=== PATIENT | male | born 1940 | race Caucasian/White ===

== ENCOUNTER 2024-07-28 12:06 | Emergency (ER) | payer MEDICARE, OTHER, SELFPAY ==
[2024-07-28 12:10] VITALS: BP 130/84
[2024-07-28 12:31] LABS: % Basophils 0.7 % (0-2); % Eosinophils 2.2 % (0-6); % Immature Granulocytes 0.3 % (0-0.5); % Lymphocytes 28.2 % (20.5-51.1); % Neutrophils 61.6 % (42.2-75.2); Absolute Basophils 0.1 10^3/uL (0-0.2); Absolute Eosinophils 0.2 10^3/uL (0-0.7); Absolute Lymphocytes 2.6 10^3/uL (1.2-3.4); Absolute Monocytes 0.6 10^3/uL (0.1-0.6); Absolute Neutrophils 5.7 10^3/uL (1.4-6.5); Hematocrit 48.3 % (39.0-52.0); Hemoglobin 16.1 g/dL (13.0-18.0); Mean Corp Hgb Conc. 33.3 g/dL (33.0-37.0); Mean Corpuscular Hgb 30.7 pg (27.0-31.0); Mean Corpuscular Volume 92.2 fL (80.0-94.0); Mean Platelet Volume 8.5 fL (7.4-10.4); Nucleated Red Blood Cells % 0 % (-); Platelet Count 293 10^3/uL (130-400); Red Blood Cell Count 5.24 10^6/uL (4.70-6.10); Red Cell Dist. Width 13.7 % (11.5-14.5); White Blood Cell Count 9.2 10^3/uL (4.8-10.8)
[2024-07-28 12:43] LABS: COVID-19 Antigen Negative (Negative)
[2024-07-28 12:46] LABS: ALT (SGPT) 11 U/L (0-50); AST (SGOT) 30 U/L (17-59); Albumin 4.6 g/dl (3.5-5.0); Alkaline Phosphatase 82 U/L (38-126); Blood Urea Nitrogen 17 mg/dl (9-20); Calcium 9.7 mg/dl (8.4-10.2); Carbon Dioxide 31 mmol/L (22-30); Chloride 102 mmol/L (98-107); Glucose 88 mg/dl (70-99); Potassium 4.5 mmol/L (3.5-5.1); Sodium 142 mmol/L (135-145); Total Bilirubin 0.9 mg/dl (0.2-1.3); Total Protein 6.8 g/dl (6.3-8.2); eGFR > 60.00
[2024-07-28 12:49] LABS: Urine Albumin Negative (Neg - Trace); Urine Bilirubin Negative (Negative); Urine Character Clear (Clear); Urine Color Yellow; Urine Glucose Negative (Negative); Urine Ketone 1+ (Negative); Urine Leukocyte Negative (Negative); Urine Nitrite Negative (Negative); Urine Occult Blood Negative (Negative); Urine Urobilinogen Negative (Neg - 1+)
[2024-07-28 15:37] VITALS: BP 121/61
--- NOTE | 2024-07-28 19:33 | ED.GENMED ---
History of Present Illness
General
Chief Complaint: Male Genito-Urinary Symptoms
Source: patient and spouse
Exam Limitations: none
Time Seen by Provider: 07/28/24 15:50
Nursing documentation reviewed up to this point in time: agreed with
History of Present Illness
History of Present Illness:
83-year-old male with history as noted presents to the ER with his for evaluation of restlessness. His reports that over the past 2 days she noticed that he was a bit more restless. Spoke with PCP who recommended coming to the ER to be
evaluated, concerned that potentially he could have a UTI. Patient says that he feels generally well. He has no acute complaints. Denies headache, chest pain, back pain, abdominal pain. His says that she has not noticed any vomiting or any
other issues aside from some mild agitation. She says that he does have some mild cognitive impairment and thinks it could be related but brought him in an abundance of caution.
Past History
Past History
ED Past Medical History: Arrthythmia, COPD, HTN, Other (renal calc) and Other (Prostatitis, kidney stones, Parkinsons)
ED Past Surgical History: Tonsilectomy and Urological
Social History
Tobacco: Former smoker
Alcohol: None
Personal:
Living: with family
Employment: Retired
Review of Systems
Review of Systems
All Other Systems: ROS reviewed and negative except as documented in HPI and ROS
Constitutional: Denies fever or chills
Respiratory: Denies cough or trouble breathing
Cardiac: Denies chest pain or palpitations
ABD/GI: Denies abdominal pain, nausea, vomiting or diarrhea
: Denies dysuria or flank pain
Musculoskeletal: Denies neck pain or back pain
Neurological: Denies dizzy or headache
Phy Exam
Physical Exam
Physical Exam:
General: Sitting in bed resting comfortably, nontoxic
Head: Normocephalic, atraumatic
Eyes: Conjunctiva normal, EOMI, pupils equal round and reactive to light bilaterally
Throat: Airway intact, handling secretions
Neck: Trachea midline, supple without meningismus
Lungs: Clear to auscultation bilaterally, no wheezing, rales, rhonchi
Heart: Regular rate and rhythm, no murmurs, gallops, or rubs
Abd: Soft, non distended, nontender
Skin: Chronic venous stasis changes in the legs bilaterally
Extremities: Bilateral lower extremity edema, distal extremities warm well-perfused
Scores
Heart Failure Risk
Heart Failure Risk Score: Not Applicable
Heart Score for Chest Pain Patients
STEMI patient?: Not applicable
Withdrawal Assessment of Alcohol
Withdrawal Assessment Completed?: Not applicable
Course
Orders/Labs/Results
Orders:
Orders
07/28/24 12:12
Electrocardiogram (*1) Urgent
Reason for Study: Other
Other Reason for Exam: Possible Sepsis
07/28/24 12:13
EKG- Treatment ONCE
CR Chest - 2 Views Urgent
Comment:
Reason For Exam: suspected infection
07/28/24 12:16
COVID-19 Antigen Urgent
Source: Nasal Swab
Complete Blood Count/With Diff Urgent
Comprehensive Metabolic Panel Urgent
Urinalysis Reflex To Culture Urgent
Date Specimen was Collected: 07/28/24
Time Specimen was Collected: 12:13
Influenza A+B Rapid Molecular Urgent
MICHAEL Source: Nasal Swab
Specimen Description:
Abnormal Lab Results
07/28/24
12:16
Carbon Dioxide 31 H mmol/L
(22-30)
Urine Ketones 1+ A
(Negative)
07/28/24 12:16
07/28/24 12:16
Vital Signs
Initial and Last Documented VS:
Initial Vital Signs
Temp Pulse Resp BP Pulse Ox
36.4 C 57 16 130/84 98
07/28/24 12:10 07/28/24 12:10 07/28/24 12:10 07/28/24 12:10 07/28/24 12:10
Last Documented Vital Signs
Temp Pulse Resp BP Pulse Ox
36.4 C 54 18 121/61 95
07/28/24 15:37 07/28/24 15:37 07/28/24 15:37 07/28/24 15:37 07/28/24 15:37
MDM/Problems Addressed
Differential Diagnosis Includes:
Delirium, polypharmacy, infection, electrolyte derangement
MDM/Problems Addressed:
83-year-old male presents for evaluation of some increased agitation over the past 2 days. No other symptoms noted. Vitals are all normal. Physical exam as above. Labs sent off including a CBC and a CMP which showed no clinically significant
abnormalities. Urinalysis shows no infection. COVID and flu negative. Chest x-ray no infection. EKG shows sinus rhythm. Low suspicion for emergent pathology. Suspect this may be some mild delirium. Stable for discharge. I did call and
discussed case with patient's primary care physician who will follow-up with him in the office. All questions answered.
*Radiology
Radiology exam reviewed: radiology read reviewed
*Pulse Oximetry
Patient hypoxic: no
*EKG
Interpreted by ED Provider?: Yes
Heart Rate: 55
Rate: bradycardiac
Rhythm: sinus
[place]: left axis deviation
Interval: normal interval
QRS Pattern: normal QRS
Ischemia: non-specific ST changes
*Critical Care Note
Total Time (30-74mins, 75-104mins- exclusive of procedures): Not Applicable
Data Reviewed
Source: patient and spouse
Patient Management
Social determinants of health affecting care: Strong social support
Discussion with other providers: PCP (Discussed with primary care physician)
ED Attending Note
-
Portions of this chart may have been created with voice recognition software.� Occasional wrong word or��sound alike� substitutions may have occurred due to the inherent limitations of voice recognition software.
Discharge Plan
Departure
Patient Disposition: Home (Routine Discharge)
Date of Disposition: 07/28/24
Time of Disposition: 16:32
Patient with high blood pressure during this ER visit?: No
Discharge Problem:
Delirium
Instructions: Delirium (confusion)
Prescriptions:
No Action
aspirin 81 MG tablet,delayed release (DR/EC)
81 mg PO DAILY
cholecalciferol (vitamin D3) 2,000 UNIT tablet
2,000 unit PO DAILY
atorvastatin 10 MG tablet
10 mg PO DAILY
pramipexole 0.125 MG tablet
0.125 mg PO BID
Eliquis 5 MG tablet
5 mg PO BID 30 Days Qty: 60 3RF
furosemide [Lasix] 20 mg Tablet
20 mg PO DAILY
metoprolol succinate 25 mg tablet extended release 24 hr
25 mg PO DAILY
carbidopa-levodopa 25-100 mg tablet
2 tab PO TID
fluticasone propionate [Flovent HFA] 44 mcg/actuation Hfa Aerosol Inhaler
2 puff inhalation R BID Qty: 10.6 2RF
oseltamivir 75 mg Capsule
75 mg PO BID Qty: 8 0RF
Referrals:
Demond Ott DO [Family Provider] - Follow up in 2-3 days
Activity Restrictions/Additional Instructions:
Thank you for visiting the Emergency Department at [facility].
1. Please schedule a follow up appointment as directed. Call first thing tomorrow morning to make an appointment.
2. If indicated, please take your medications as instructed and indicated on discharge paperwork.
3. If any of your symptoms do not improve, or persist, or become more severe within 6-12 hours, please return to the emergency department for further care.
4. Please return to the emergency department if you develop a headache, neck pain/stiffness, fever greater than 100.4F, chest pain, shortness of breath, persistent nausea, vomiting, slurred speech, difficulty walking, numbness/tingling, weakness,
signs of infection or any other symptoms that are worrisome to you.
Please call [phone] if you have any questions.
Interventions
Interventions:
*Risk Screen - Suicide Last Done: 07/28/24 12:10
*General Assessment Last Done: 07/28/24 16:00
*Neglect/Abuse Screening Last Done: 07/28/24 12:10
*ED- Fall Risk Assessment Last Done: 07/28/24 16:00
ED-Male Genitourinary Assessment Last Done: 07/28/24 16:00
Discharge Date and Time
Print Language: BELARUSIAN
== END 2024-07-28 16:35 | disposition home or self-care (01) ==
LOC: EMR 12:06
PROVIDERS: Emergency Medicine; EMERGENCY PHYSICIAN Emergency Medicine; FAMILY PHYSICIAN Family Medicine; OTHER PHYSICIAN Specialist
DX: R41.0 Disorientation, unspecified (principal); J44.9 Chronic obstructive pulmonary disease, unspecified; I10 Essential (primary) hypertension; Z87.891 Personal history of nicotine dependence; G20.A1 Parkinson's disease without dyskinesia, without mention of fluctuations; G31.84 Mild cognitive impairment of uncertain or unknown etiology; Z11.52 Encounter for screening for COVID-19
CPT/HCPCS: 99285; 71046; 80053; 81003; 85025; 87502; 87811; 93005

== ENCOUNTER → 2024-10-10 17:24 | Outpatient (REF) | payer MEDICARE, OTHER, SELFPAY | LOC: RAD 17:24 | PROVIDERS: ATTENDING PHYSICIAN Family Medicine | DX: R05.1 Acute cough (principal); J22 Unspecified acute lower respiratory infection | CPT/HCPCS: 71046 ==

== ENCOUNTER 2024-12-05 18:05 | Inpatient (IN) | payer MEDICARE, OTHER, SELFPAY ==
[2024-12-05] VITALS (8 sets, daily range): BP systolic 116–153; BP diastolic 59–94; BMI 32.7
[2024-12-05 12:36] LABS: Hematocrit 49.8 % (39.0-52.0); Hemoglobin 16.3 g/dL (13.0-18.0); Mean Corp Hgb Conc. 32.7 g/dL (33.0-37.0); Mean Corpuscular Volume 92.9 fL (80.0-94.0); Nucleated Red Blood Cells % 0 % (-); Platelet Count 251 10^3/uL (130-400); Red Cell Dist. Width 14.1 % (11.5-14.5)
[2024-12-05 12:54] LABS: ALT (SGPT) 10 U/L (0-50); AST (SGOT) 24 U/L (17-59); Albumin 4.8 g/dl (3.5-5.0); Alkaline Phosphatase 70 U/L (38-126); Blood Urea Nitrogen 19 mg/dl (9-20); Calcium 9.8 mg/dl (8.4-10.2); Carbon Dioxide 32 mmol/L (22-30); Chloride 102 mmol/L (98-107); Glucose 99 mg/dl (70-99); Potassium 4.8 mmol/L (3.5-5.1); Sodium 140 mmol/L (135-145); Total Protein 7.3 g/dl (6.3-8.2); eGFR > 60.00
[2024-12-05 13:06] LABS: Troponin I < 0.012 ng/ml
--- NOTE | 2024-12-05 13:44 | ED.GENMED ---
History of Present Illness
General
Chief Complaint: Cough
Source: patient
Exam Limitations: none
Time Seen by Provider: 12/05/24 13:20
History of Present Illness
History of Present Illness:
84-year-old male with history of A-fib on Eliquis COPD presents complaining of 2 to 3 months worth of progressive chest congestion and cough with increased leg swelling and shortness of breath. He has been on Levaquin and steroids and took a break
and then was on doxycycline and steroids and most recently finishing 2 weeks ago he is on a Zithromax and a course of steroid. While on the steroid and antibiotic he feels slightly better but the symptoms returned. notes his recent weight
gain. He feels as though the congestion is worse when he lays flat. No fevers. No vomiting. He has a history of dementia and Parkinson's. No other complaints
Past History
Past History
ED Past Medical History: Arrthythmia, COPD, HTN, Other (renal calc) and Other (Prostatitis, kidney stones, Parkinsons)
ED Past Surgical History: Tonsilectomy and Urological
Social History
Tobacco: Former smoker
Alcohol: None
Personal:
Living: with family
Employment: Retired
Phy Exam
Physical Exam
Physical Exam:
General: Well-appearing male no acute respiratory distress
HEENT: Normocephalic atraumatic
Heart: Regular rate and rhythm
Lungs: Diffusely coarse with wheezing and rhonchi
Abdomen is soft nontender
Extremities: Pitting edema bilateral lower extremity
Course
Orders/Labs/Results
Orders:
Orders
12/05/24 11:54
Electrocardiogram (*1) Urgent
Reason for Study: Shortness of Breath
EKG- Treatment ONCE
12/05/24 12:12
CMP [Comprehensive Metabolic Panel] Urgent
Complete Blood Count/With Diff Urgent
NT-proBNP Urgent
Troponin I Urgent
12/05/24 13:36
CT Chest W/o Iv Contrast Urgent
Comment:
Reason For Exam: cough, congestion, sob
12/05/24 17:00
Dexamethasone Sod Phosphate [Decadron] 10 mg IV NOW STA
Ipratropium/Albuterol Sulfate [Duoneb] 3 ml INH R NOW STA
Abnormal Lab Results
12/05/24
12:12
MCHC 32.7 L g/dL
(33.0-37.0)
Eosinophils % 6.7 H %
(0-6)
Carbon Dioxide 32 H mmol/L
(22-30)
12/05/24 12:12
12/05/24 12:12
Vital Signs
Initial and Last Documented VS:
Initial Vital Signs
Temp Pulse Resp BP Pulse Ox
98.1 F 64 18 140/76 96
12/05/24 11:49 12/05/24 11:49 12/05/24 11:49 12/05/24 11:49 12/05/24 11:49
Last Documented Vital Signs
Temp Pulse Resp BP Pulse Ox
98.1 F 51 18 128/72 98
12/05/24 11:49 12/05/24 14:30 12/05/24 14:30 12/05/24 14:00 12/05/24 14:30
MDM/Problems Addressed
Differential Diagnosis Includes:
Chest congestion cough shortness of breath consider pneumonia versus bronchitis versus CHF
Patient does appear volume overloaded however BNP is normal. He was due for an outpatient CT of his chest as he had a x-ray of his chest in the recent past which was not helpful per the . CT of the chest was ordered.
*Pulse Oximetry
SaO2: 96
Oxygen Mode of Delivery: Room air
Patient hypoxic: no
*Critical Care Note
Total Time (30-74mins, 75-104mins- exclusive of procedures): Not Applicable
Update Note
Update Note:
CT negative. Patient reexamined does seem tachypneic at rest sometimes he drops to 86% on room air. Will start nasal cannula oxygen and treat for bronchitis flare with nebulizer and steroid. Patient has been failing even for this.
ED Attending Note
-
Portions of this chart may have been created with voice recognition software.� Occasional wrong word or��sound alike� substitutions may have occurred due to the inherent limitations of voice recognition software.
Discharge Plan
Departure
Patient Disposition: Admit
Date of Disposition: 12/05/24
Time of Disposition: 17:01
Presentation/result/management discussed w/ accepting MD/DO: Hospitalist
Discharge Problem:
Acute bronchitis
Prescriptions:
No Action
aspirin 81 MG tablet,delayed release (DR/EC)
81 mg PO DAILY
cholecalciferol (vitamin D3) 2,000 UNIT tablet
2,000 unit PO DAILY
atorvastatin 10 MG tablet
10 mg PO DAILY
pramipexole 0.125 MG tablet
0.125 mg PO BID
Eliquis 5 MG tablet
5 mg PO BID 30 Days Qty: 60 3RF
furosemide [Lasix] 20 mg Tablet
20 mg PO DAILY
metoprolol succinate 25 mg tablet extended release 24 hr
25 mg PO DAILY
carbidopa-levodopa 25-100 mg tablet
2 tab PO TID
fluticasone propionate [Flovent HFA] 44 mcg/actuation Hfa Aerosol Inhaler
2 puff inhalation R BID Qty: 10.6 2RF
oseltamivir 75 mg Capsule
75 mg PO BID Qty: 8 0RF
Referrals:
Demond Ott DO [Family Provider, Family Practice]
Interventions
Interventions:
*Risk Screen - Suicide Last Done: 12/05/24 11:49
*Neglect/Abuse Screening Last Done: 12/05/24 11:49
Discharge Date and Time
Print Language: MOLDOVAN
--- NOTE | 2024-12-05 17:06 | HPS.HSE ---
Addendum entered and electronically signed by Buddy Inman MD 12/05/24 18:41:
This is an addendum to H&P written by Corie Gutierrez on 12/05/2024. �Patient seen and examined independently with PA.
84-year-old male past medical history of atrial fibrillation on Eliquis, hypertension, COPD, Parkinson disease, anxiety/depression, history of left hemithyroidectomy, presented with cough and shortness of breath for past few months. �Treated with 3
courses of antibiotics and steroids with improvement and rebound. �No fever.
Increased lower extremity edema, 9 pound weight gain.
Vital signs normal. �Labs unremarkable. �Cardiac BNP 40. �Bilateral wheezing on examination
Chest x-ray shows no acute process. �CT chest shows minor bibasilar subsegmental atelectasis, no focal parenchymal consolidation.
Patient with likely acute COPD exacerbation with fluid retention secondary to frequent steroids. �Imaging and cardiac BNP not supportive of CHF exacerbation. �DuoNebs, dexamethasone. �Single dose of IV Lasix. �Check echocardiogram.
Original Note:
Family Physician
-
Family Physician: Demond Ott
Chief Complaint
-
Cough
History of Present Illness
Patient is an 84 y/o male past medical history of A-Fib, Hypertension, Hyperlipidemia, COPD and Parkinson' Disease who presents with cough and shortness of breath. Patient reports he has completed several coarse of steroids and antibiotics over the
past few months. He notes after each treatment he would get a little better but symptoms would quickly recur. He reports cough is only occasionally productive of clear mucus. He reports increased lower extremity edema and notes he has gained about
9lbs in the past 2 week despite having an poor appetite. He does have a nebulizer at home that he has been using about twice a day. He denies fevers, sweats or chills.
Medical History
Past Medical History
Past Medical History: Reports Other
Additional Past Medical History:
Paroxysmal Atrial Fibrillation
Essential Hypertension
Hyperlipidemia
COPD
Parkinson's Disease
Past Surgical History: Reports Other
Additional Past Surgical History:
Tonsillectomy
Lithotripsy
Left Hemithyroidectomy
Social History
Tobacco: Former Smoker (~40 pack year history - Quit about 40 years agos)
Alcohol: None
Family History
Family History: Not pertinent
Allergies / Home Medications
Allergies reflects when Allergies were last updated in [employer].
Home Medications with original date entered in [employer]
Allergy/Medication List:
Allergies
Allergy/AdvReac Type Severity Reaction Status Date / Time
No Known Allergies Allergy Verified 07/28/24 12:10
Home Medications
cholecalciferol (vitamin D3) 50 mcg (2,000 unit) tablet 2,000 unit PO DAILY Supplement 12/11/14
atorvastatin 10 mg tablet 10 mg PO DAILY High cholesterol 07/30/16
pramipexole 0.125 mg tablet 0.125 mg PO BID parkinson disease 02/25/21
apixaban 5 mg tablet (Eliquis) 5 mg PO BID 30 days #60 tabs 03/01/21
furosemide 20 mg tablet (Lasix) 20 mg PO DAILY Fluid retention/Swelling 04/12/22
carbidopa 25 mg-levodopa 100 mg tablet 2 tab PO QID parkinson disease 04/13/22
metoprolol succinate 25 mg tablet,extended release 24 hr 25 mg PO DAILY Blood pressure 04/13/22
ipratropium 0.5 mg-albuterol 3 mg (2.5 mg base)/3 mL nebulization soln 3 ml inhalation R QIDPRN PRN sob 12/05/24
mirtazapine 7.5 mg tablet 7.5 mg PO HS 12/05/24
therapeutic multivitamin 1 tab PO DAILY 12/05/24
zinc sulfate 50 mg zinc (220 mg) tablet 50 mg PO DAILY 12/05/24
Review of Systems
-
A 12 point ROS was completed and negative except as noted: Yes
Constitutional: Denies Fever
Respiratory: Reports See HPI
Cardiac: Denies Chest Pain or Palpitations
Abdomen/GI: Denies Abdominal Pain, Nausea, Vomiting or Diarrhea
Physical Exam
Vital Signs
Vital Signs
Temp Pulse Resp BP Pulse Ox
98.1 F 51 18 128/72 98
12/05/24 11:49 12/05/24 14:30 12/05/24 14:30 12/05/24 14:00 12/05/24 14:30
Physical Exam
General: Comfortable, Conversant and Obese
HEENT: Anicteric, Moist mucous membranes and Oxygen (Nasal Cannula)
Respiratory: Wheezes (Diffuse) and Non Labored Respirations
Cardiac: S1/S2 and Regular Rhythm
GI: Soft and Non Tender
Rectal: Deferred by Provider
Musculoskeletal: No Clubbing, No Cyanosis and Other (+2 pitting edema )
Skin: Warm, Dry and Other (Mild erythema bilateral lower extremities, right greater than left)
Neuro: Awake, Alert, Oriented and Tremors
Psych: Calm
Laboratory Results
-
12/05/24 12:12
12/05/24 12:12
Laboratory Results
Total Bilirubin 1.1 mg/dl (0.2-1.3) 12/05/24 12:12
AST 24 U/L (17-59) 12/05/24 12:12
ALT 10 U/L (0-50) 12/05/24 12:12
Alkaline Phosphatase 70 U/L (38-126) 12/05/24 12:12
Troponin I < 0.012 ng/ml 12/05/24 12:[address]:
Some minor bibasilar subsegmental atelectasis.
No focal parenchymal consolidation, pneumothorax or pleural effusion.
Data Reviewed
-
CT Scan: Report Reviewed by me
Lab Data: Labs Reviewed by me
Impression/Plan
-
Acute COPD Exacerbation
-Continue Decadron 4mg q12H
-Continue DuoNeb QID and PRN
-Monitor pulse ox
Fluid Retention due to recent/frequent steroids
-Give Lasix 40mg IV Now
-Check Peripheral Vascular US, though low suspicion for DVT as patient is on Eliquis
-Check Echocardiogram as prior with evidence of mild valvular disease
Paroxysmal Atrial Fibrillation
-Continue Eliquis
-Continue metoprolol with hold parameters
Essential Hypertension
-Continue metoprolol with hold parameters
Hyperlipidemia
-Continue atorvastatin
Parkinson's Disease
-Continue Sinemet and Pramipexole
DVT proph: Eliquis
Code Status: Full Code
[2024-12-05] MEDS: DUONEB 3 ML INH ×2 (17:25→20:28)
[2024-12-05] MEDS: DECADRON 10 MG IV (17:27)
--- NOTE | 2024-12-05 18:01 | CM ---
CM reviewed chart and met with pt's bedside in ED. Lives with in 2 story home, no KATHIA. Has hospital bed in on first floor, has half BA first floor, full BA second floor.
Needs assistance with ADLs and personal care, has private pay aides MWF from 9-.
Ambulates with rolling walker, also has nebulizer, toilet rails and raised toilet seat in upstairs BA.
Hx VN/PT/OT after admission at [facility] last year, no hx SNF
PCP: Demond Ott
Pharmacy: [facility]
CM will continue to follow for all discharge planning needs.
[2024-12-05] MEDS: LASIX 40 MG IV (18:43)
--- NOTE | 2024-12-05 21:00 | PTCARENOTE ---
Pt arrived to floor via stretcher from the ED. Pt OOBx2 with walker to stand and pivot to bed. Pt very unsteady on feet, stiff rigid body. Parkinsons shuffle. Pt AAOx2- Confused and needs things explained to him. Bed alarm in place. Daughter at
bedside to assist with admit. Pt normally at home independent with and home visiting nurse. Upon arrival pt assisted to stand to urinate, pt reports burning with urination and noted to be bleeding. Pt with urgency and frequency. Bladder scanned
performed, 440ml scanned. Pam GOODRICH notified, order obtained. pt straight cathed for 600ml blood tinged urine, Specimen sent to lab as ordered. pt too weak to walk to bathroom, pt given bed collins, unable to have BM at this time. Pt HERZOG, ex wheezes,
course lungs, harsh dry non productive cough. POX 94% on 2 LO2 NC. HR in the 70's in NSR on the monitor. Per daughter, pt gets confused at night and tries to get out and gets agitated at times. Bed alarm on bed to ensure safety. Call kinsey in reach.
Will continue to monitor closely.
[2024-12-05 21:24] LABS: Urine Character Clear (Clear)
[2024-12-05] MEDS: SINEMET 25-100 2 TABLET PO (21:26)
[2024-12-05] MEDS: ELIQUIS 5 MG PO (21:26)
[2024-12-05] MEDS: REMERON 7.5 MG PO (21:26)
[2024-12-05] MEDS: MIRAPEX 0.125 MG PO (21:28)
[2024-12-05 21:31] LABS: Urine Squamous Cell 0-2 /LPF (Few)
[2024-12-05 21:32] LABS: Urine Red Blood Cell 30-40 /HPF (0-2); Urine White Cell 0-2 /HPF (0-5)
[2024-12-06 03:28] VITALS: BP 134/72
[2024-12-06] MEDS: DECADRON 4 MG IV ×2 (05:08→18:05)
[2024-12-06 05:51] VITALS: BMI 32.9
[2024-12-06] MEDS: DUONEB 3 ML INH ×4 (07:19→19:16)
[2024-12-06 07:30] VITALS: BP 139/76
[2024-12-06 08:21] LABS: Hematocrit 49.2 % (39.0-52.0); Hemoglobin 16.6 g/dL (13.0-18.0); Mean Corp Hgb Conc. 33.7 g/dL (33.0-37.0); Mean Corpuscular Volume 91.6 fL (80.0-94.0); Platelet Count 282 10^3/uL (130-400); Red Cell Dist. Width 13.5 % (11.5-14.5)
[2024-12-06] MEDS: SINEMET 25-100 2 TABLET PO ×4 (08:48→20:03)
[2024-12-06] MEDS: LIPITOR 10 MG PO (08:48)
[2024-12-06] MEDS: ELIQUIS 5 MG PO ×2 (08:48→20:02)
[2024-12-06] MEDS: TOPROL XL 25 MG PO (08:49)
[2024-12-06] MEDS: MIRAPEX 0.125 MG PO ×2 (09:07→20:02)
[2024-12-06 09:13] LABS: Blood Urea Nitrogen 18 mg/dl (9-20); Calcium 9.6 mg/dl (8.4-10.2); Carbon Dioxide 25 mmol/L (22-30); Chloride 104 mmol/L (98-107); Estimated Creatinine Clearance 107 ml/min; Glucose 145 mg/dl (70-99); Magnesium 2.1 mg/dl (1.6-2.3); Potassium 4.5 mmol/L (3.5-5.1); Sodium 140 mmol/L (135-145); eGFR > 60.00
[2024-12-06] MEDS: DUONEB INH (11:27)
[2024-12-06 11:45] VITALS: BP 121/76
[2024-12-06 15:05] VITALS: BP 108/58
--- NOTE | 2024-12-06 15:05 | W.PN.HOSP.TC ---
Today's Communication/Plan
-
Consult pulmonary
Assessment / Plan
Assessment / Plan
Acute COPD Exacerbation
Patient denies history of COPD but says he has chronic bronchitis.
Recurrent flares needing 3 courses of steroids and antibiotics. Recurrence of symptoms after steroid courses are done.
Chest CT shows no evidence of focal abnormality in thorax other than bibasilar subsegmental atelectasis.
-Continue Decadron 4mg q12H
-Continue DuoNeb QID and PRN
-Monitor pulse ox
- Consult pulm
- Check ECHO
Acute hypoxic respiratory insufficiency-wean oxygen as able.
Fluid Retention due to recent/frequent steroids
- Clinically doubt CHF .BNP normal
-Check Peripheral Vascular US, though low suspicion for DVT as patient is on Eliquis
-Check Echocardiogram as prior with evidence of mild valvular disease
- CW Diuretics
Paroxysmal Atrial Fibrillation
-Continue Eliquis
-Continue metoprolol with hold parameters
Abnormal enlargement of the right lobe of thyroid-recommend outpatient ultrasound.
Essential Hypertension
-Continue metoprolol with hold parameters
Hyperlipidemia
-Continue atorvastatin
Parkinson's Disease
-Continue Sinemet and Pramipexole
DVT proph: Eliquis
Code Status: Full Code
DW at bedside
DW RN
Total time spent on today's encounter was 52 minutes which included time spent in counseling the patient/family regarding diagnosis and treatment plan as listed above, goals of care, and symptom management. Case was discussed with nursing staff,
specialists, and care coordinators/case management. All labs and imaging personally reviewed by me. Remainder the time spent in detailed review of previous records, lab data, imaging, and other medical provider documentation.
Anticipated Discharge: > 48 hours
Subjective/Interval History
-
Date of Service: December 06, 2024
Summary of ongoing: According to at bedside sputum can be allowed to green in color.
Remote history of chronic bronchitis and has not seen pulmonary in the last 3 years.
In the last month or so he needed 3 courses of steroids and antibiotics for cough and wheezing. It looks like he is responsive to steroids but then symptoms come back with a wean.
Also was putting on fluid with the increasing lower extremity edema lately.
Denies any chest pain today. No nausea vomiting. No fever chills.
Objective Data
-
Labs:
Laboratory Results
12/06/24
07:36
WBC 9.0
Hgb 16.6
Hct 49.2
Plt Count 282
Sodium 140
Potassium 4.5
Chloride 104
Carbon Dioxide 25
BUN 18
Creatinine 0.7
Glucose 145 H
Calcium 9.6
Vital Signs:
Vital Signs
Temp Pulse Resp BP Pulse Ox
97.8 F 80 16 121/76 99
12/06/24 11:45 12/06/24 12:31 12/06/24 12:31 12/06/24 11:45 12/06/24 11:45
I&O
12/05/24 12/06/24 12/07/24
06:59 06:59 06:59
Output Total 1250 / 1250
Balance -1250 / -1250
Physical Exam
-
General: Comfortable
Respiratory: Rhonchi (BL) and Non Labored Respirations; Negative Accessory Resp Muscle Use
Cardiac: Regular Rhythm and S1/S2; Negative Tachycardic
GI: Soft
Musculoskeletal: Edema, Left Upper Extrem and Edema, Right Lower Extrem
Neuro: AO x 3
Psych: Calm; Negative Confused
Data Reviewed
-
Labs: Labs Reviewed by me
--- NOTE | 2024-12-06 15:19 | CON.PUL ---
Addendum entered and electronically signed by Jane Oh DO 12/06/24 16:18:
Could obtain evaluation with PFTs but given patient's capacity to follow commands/efforts, it would likely not yield results
The treatment would not differ from use of inhalers/nebulizers which they have declined to do
This was also reviewed with family
Original Note:
Consultation
Consultation Request
Date/Time Consultation Requested: 12/06/24
Date/Time Consultation Performed: 12/06/24
Performing Provider: Adriano
Reason for Consultation: SOB/cough
Medical History
-
History of Present Illness:
84-year-old male with history of atrial fibrillation on Eliquis, Parkinson's disease, restrictive lung disease, hypertension, obesity seen here in consultation for progressive shortness of breath and cough complaints over the past few months.
Family states that the patient has had notable difficulty with breathing on exertion on short distance since ambulating to the bathroom. They note that he has had chronic cough, congestion, choking all night long, productive mucus at times of
yellow to green sputum. He has been treated with 3 rounds of antibiotics and steroids with short-term improvement and will have return symptoms following completion of treatment. He has had increased lower extremity edema with a 9 pound weight
gain. On admission, chest x-ray and CT imaging demonstrating no significant findings.
Previously seen by Dr. Fulton in the office over 3 years ago. Pulmonary function testing at that time demonstrating mild restriction. He was placed on inhalers and nebulizers but the family notes that they have not been giving him treatments due
to his history of A-fib and was discouraged to by his [employer].
He has a history of Parkinson's disease with progressive decline. He is currently confused and has dementia with inability to provide HPI or ROS.
Past Medical History
Past Medical History: Other (see list below)
Social History
Tobacco: Former Smoker
Alcohol: None
Drug: None
Family History
Family History: Reviewed & Not Pertinent
Allergies / Home Medications
Allergies
Allergy/AdvReac Type Severity Reaction Status Date / Time
No Known Allergies Allergy Verified 07/28/24 12:10
Home Medications
�Medication �Instructions �Recorded �Confirmed �Last Taken �Type
cholecalciferol (vitamin D3) 50 2,000 unit PO DAILY Supplement 12/11/14 12/05/24 12/05/24 History
mcg (2,000 unit) tablet
atorvastatin 10 mg tablet 10 mg PO DAILY High cholesterol 07/30/16 12/05/24 12/05/24 History
pramipexole 0.125 mg tablet 0.125 mg PO BID parkinson disease 02/25/21 12/05/24 12/05/24 History
apixaban 5 mg tablet (Eliquis) 5 mg PO BID 30 days #60 tabs 03/01/21 12/05/24 12/05/24 Rx
furosemide 20 mg tablet (Lasix) 20 mg PO DAILY Fluid 04/12/22 12/05/24 12/05/24 History
retention/Swelling
carbidopa 25 mg-levodopa 100 mg 2 tab PO QID parkinson disease 04/13/22 12/05/24 12/05/24 History
tablet
metoprolol succinate 25 mg 25 mg PO DAILY Blood pressure 04/13/22 12/05/24 12/05/24 History
tablet,extended release 24 hr
ipratropium 0.5 mg-albuterol 3 mg 3 ml inhalation R QIDPRN PRN sob 12/05/24 12/05/24 12/05/24 History
(2.5 mg base)/3 mL nebulization
soln
mirtazapine 7.5 mg tablet 7.5 mg PO HS 12/05/24 12/05/24 12/04/24 History
therapeutic multivitamin 1 tab PO DAILY 12/05/24 12/05/24 12/05/24 History
zinc sulfate 50 mg zinc (220 mg) 50 mg PO DAILY 12/05/24 12/05/24 12/05/24 History
tablet
Review of Systems
-
History Source: Family and Transfer Record
All other systems: Negative unless noted
Vitals / Labs / Diagnostic Testing
Vital Signs
Temp Pulse Resp BP Pulse Ox
97.8 F 83 18 121/76 93
12/06/24 11:45 12/06/24 15:12 12/06/24 15:12 12/06/24 11:45 12/06/24 15:12
Lab Data
12/06/24 07:36
12/06/24 07:36
Diagnostic Testing:
Physical Exam
-
HEENT: Normocephalic, Anicteric and Moist Mucous Membranes
Cardiovascular: S1/S2, Regular Rhythm and Peripheral Edema
Respiratory: Clear and Non-Labored Respirations
GI: Soft, Non Distended and Non Tender
Neurology: Awake and Other (borderline nonverbal, confused, difficulty following commands)
Skin: Warm and Dry
General: Comfortable and Other (NAD)
Assessment
-
84-year-old male with history of atrial fibrillation on Eliquis, Parkinson's disease, restrictive lung disease, hypertension, obesity seen here in consultation for progressive shortness of breath and cough complaints over the past few months.
Family states that the patient has had notable difficulty with breathing on exertion on short distance since ambulating to the bathroom. They note that he has had chronic cough, congestion, choking all night long, productive mucus at times of
yellow to green sputum. He has been treated with 3 rounds of antibiotics and steroids with short-term improvement and will have return symptoms following completion of treatment. He has had increased lower extremity edema with a 9 pound weight
gain. On admission, chest x-ray and CT imaging demonstrating no significant findings. We are consulted for evaluation.
Chronic cough, congestion
Productive sputum
HERZOG
Sedentary lifestyle
Progressive NMD
Lower extremity swelling
Conditions present QUALITY AUDITOR
Paroxysmal Atrial Fibrillation
Essential Hypertension
Hyperlipidemia
COPD
Restrictive lung disease
Parkinson's Disease/Gait difficulty/Risk for falls
Tonsillectomy
Left Hemithyroidectomy
Prediabetes
Lumbar facet arthropathy
Chronic prostatitis/BPH
Diverticulosis
Obesity (BMI 30.0-34.9)
Chronic seasonal allergic rhinitis
History of kidney stones/Lithotripsy
History of basal cell carcinoma of skin/melanoma
Chronic bronchitis
Patent foramen ovale
Nonischemic cardiomyopathy
Depression
Dementia
Plan
No oxygen was needed on admission, currently saturating >90% on RA
Currently saturating 93%, appears comfortable
Prior history of lung disease is noted including COPD, RLD-mild on last PFT
Had followed with Dr Fulton in the past but they have not been back in >3 years
They were given inhalers/nebs to use but were discouraged by his [employer] air[employer] per -they do not use it
After significant discussion on HERZOG, the daughter states that she walks with him 1/4 mi once weekly and he seems to do fine
Family seems more fixated on cough complaints
CXR/CT obtained indicating no acute findings
Other imaging reviewed--also no acute findings chronically in past
Suspect patient has component of advanced NMD/weakness/deconditioning and difficulty with airway clearance given his baseline dementia and inability to control cough/mucus clearance
When we discussed treatment with airway clearance, the family notes that they have been through this before and refused to accept that this would be his foreseeable future
I explained that his frequent treatment with antibiotics and prednisone would only temporarily work (and be inappropriate use) if he is unable to perform effective mucus clearance
I do not think he has active infection given his lack of findings on CT
Can check PCT and sputum culture for more definitive evaluation
I would not treat with additional antibiotics or prednisone
We can continue nebulizers, will add budesonide twice daily
I will also add airway clearance measures including vest and Acapella
PT OT evaluations would be beneficial as well
The family does not have realistic expectations about the patient's advanced disease
He has a history of Parkinson's disease with progressive decline.
He is currently confused and has dementia with inability to provide HPI or ROS.
Lower extremity edema is noted, initial proBNP negative
Agree with lower extremity ultrasound
Prior ECHO results in 2020 are reviewed indicating preserved function
Repeat echo is pending
states the patient has significant choking at nighttime, I would recommend sleep study
She was told in the past that he needed a sleep study but she has declined testing
She did not seem interested in pursuing that despite her concerns about choking
She requested over and over again that she would like additional antibiotics only without any evidence or data to support infection
She wants an alternative diagnosis other than what I had reviewed with her
The family was borderline verbally abusive with threatening to sign out AMA--this has been verified with staff regarding their behavior since admission
They do not wish to follow-up with our office for continued management
Weight loss measures recommended
Obesity likely contributing to respiratory symptoms
Will need outpatient pulmonary evaluation in our office for PFTs and 6MWT
They can seek another provider
Given their aggressive behavior--we will follow as needed
Diagnostic Data
Chest X-Ray: 10/10/24- No acute cardiopulmonary process.
CT Scan: CHEST 12/05/24- Some minor bibasilar subsegmental atelectasis. The trachea and central airways are patent. There is no focal parenchymal consolidation, pneumothorax, pleural effusion or pericardial effusion. Evaluation of the ranjit are
markedly limited without intravenous contrast. There is no significant mediastinal or axillary lymphadenopathy. Minor elevation of the right hemidiaphragm is noted.
Echo: 02/26/21- Normal left ventricular size, wall thickness and systolic function. No regional wall motion abnormalities are seen. LV ejection fraction is 50-55% by Segovia's method of discs. Diastolic function indeterminate due to atrial
fibrillation. Mildly enlarged right ventricular size. Low normal right ventricular systolic function. Mild-moderate mitral regurgitation. Mild aortic stenosis. Mild tricuspid regurgitation. Estimated pulmonary artery pressure of 45-49 mmHg, assuming
a right atrial pressure of 8 mmHg. Mildly dilated aortic root at 3.8 cm. No prior study available for comparison.
PFT's: [place] 2016: FEV1 2.7L 77%, FVC 3.61L 75%, ratio 73. TLC 5.8L 75%, DLCO 89%
Reports and relevant images were personally reviewed.
Total time spent on this consultation __80__ minutes which includes review of history, physical exam, medications, laboratory data, personal review of imaging, extensive review of outpatient records, discussion with care team and respiratory therapy.
[2024-12-06] MEDS: PULMICORT 0.5 MG INH (19:16)
[2024-12-06 19:45] VITALS: BP 121/54
[2024-12-06] MEDS: REMERON 7.5 MG PO (20:03)
[2024-12-06 21:39] LABS: Venous Blood Gas B.E. 3.3 mmol/L (-4 to +4); Venous Blood Gas O2 Sat % 99.1 %
[2024-12-06 22:08] LABS: Procalcitonin < 0.05 ng/ml (0.0-0.25)
[2024-12-06 23:24] VITALS: BP 103/53
[2024-12-07] MEDS: DUONEB 3 ML INH ×5 (03:25→19:29)
[2024-12-07 03:59] VITALS: BP 124/67
[2024-12-07] MEDS: DECADRON 4 MG IV ×2 (05:00→17:08)
[2024-12-07 07:00] VITALS: BP 118/74
[2024-12-07] MEDS: PULMICORT 0.5 MG INH ×2 (07:27→19:29)
[2024-12-07] MEDS: MIRAPEX 0.125 MG PO ×2 (07:56→20:57)
[2024-12-07] MEDS: TOPROL XL 25 MG PO (07:56)
[2024-12-07] MEDS: ELIQUIS 5 MG PO ×2 (07:57→20:57)
[2024-12-07] MEDS: SINEMET 25-100 2 TABLET PO ×4 (07:57→20:56)
[2024-12-07] MEDS: LIPITOR 10 MG PO (07:57)
[2024-12-07 09:50] LABS: Blood Urea Nitrogen 24 mg/dl (9-20); Calcium 9.2 mg/dl (8.4-10.2); Carbon Dioxide 24 mmol/L (22-30); Chloride 106 mmol/L (98-107); Estimated Creatinine Clearance 107 ml/min; Glucose 174 mg/dl (70-99); Potassium 4.1 mmol/L (3.5-5.1); Sodium 140 mmol/L (135-145); eGFR > 60.00
[2024-12-07] MEDS: ROBITUSSIN DM 10 ML PO (10:46)
[2024-12-07 11:00] VITALS: BP 135/65
--- NOTE | 2024-12-07 11:49 | W.PN.HOSP.TC ---
Today's Communication/Plan
-
IV diuresis
Stop steroids
Speech and PT eval
Exertional pulse ox
Assessment / Plan
Assessment / Plan
Progressive shortness of breath especially with exertion
Recent concern for COPD flare treated with 3 courses of steroids and antibiotics
Patient denies history of COPD but says he has chronic bronchitis.
Recurrent flares needing 3 courses of steroids and antibiotics. Recurrence of symptoms after steroid courses are done.
Chest CT shows no evidence of focal abnormality in thorax other than bibasilar subsegmental atelectasis.
Unclear if this is pulmonary or cardiac.
Patient is seen increased weight gain with lower extremity edema. Echocardiogram shows septal flattening seen in RV pressure/volume overload. EF was 66%. There is also mildly dilated right ventricle with preserved contractility.
Since admission I did not hear any wheezing. Appreciate pulmonary input who also does not think he has active reactive airways/COPD flare. Recommending against antibiotics. Procalcitonin normal.
Patient initiated on budesonide inhaler.
-Will stop steroids
- Start on low dose lasix
-Continue DuoNeb PRN
- Monitor pulse ox
- Appt pulm
- Check SPT/PT eval
Acute hypoxic respiratory insufficiency-wean oxygen as able. On room air. Will check exertional pulse ox.
Fluid Retention due to recent/frequent steroids
- Raises concern about RV pressure/volume overload. BNP is normal but could be the case in obese people.
- Does have lower extremity edema. Clinical concern based on the echo could be diastolic dysfunction and diastolic heart failure.
- Continue diuretics. Consult cardiology.
Paroxysmal Atrial Fibrillation
In A-fib
-Continue Eliquis
-Continue metoprolol with hold parameters
Abnormal enlargement of the right lobe of thyroid-recommend outpatient ultrasound.
Essential Hypertension
-Continue metoprolol with hold parameters
Hyperlipidemia
-Continue atorvastatin
Parkinson's Disease
-Continue Sinemet and Pramipexole
DVT proph: Eliquis
Code Status: Full Code
DW pulmonary
DW RN
Total time spent on today's encounter was 52 minutes which included time spent in counseling the patient/family regarding diagnosis and treatment plan as listed above, goals of care, and symptom management. Case was discussed with nursing staff,
specialists, and care coordinators/case management. All labs and imaging personally reviewed by me. Remainder the time spent in detailed review of previous records, lab data, imaging, and other medical provider documentation.
Anticipated Discharge: 24 - 48 hours
Subjective/Interval History
-
Date of Service: December 07, 2024
Sitting in the chair comfortable.
Denies shortness of breath or chest pain today. Today. No palpitation.
No fever or chills.
No dizziness.
No fever chills
Objective Data
-
Labs:
Laboratory Results
12/07/24
09:16
Sodium 140
Potassium 4.1
Chloride 106
Carbon Dioxide 24
BUN 24 H
Creatinine 0.7
Glucose 174 H
Calcium 9.2
Vital Signs:
Vital Signs
Temp Pulse Resp BP Pulse Ox
98.4 F 64 18 124/78 94
12/07/24 07:00 12/07/24 11:13 12/07/24 11:13 12/07/24 07:56 12/07/24 11:13
I&O
12/06/24 12/07/24 12/08/24
06:59 06:59 06:59
Intake Total 240 / 240
Output Total 1250 / 1250 625 / 625
Balance -1250 / -1250 -385 / -385
Physical Exam
-
General: Comfortable
Respiratory: Clear to Auscultation and Non Labored Respirations; Negative Accessory Resp Muscle Use
Cardiac: Regular Rhythm and S1/S2
GI: Soft
Musculoskeletal: Edema, Right Lower Extrem and Edema, Left Lower Extrem (1+)
Neuro: Awake, Alert and Oriented (Self and person)
Data Reviewed
-
Medical Tests (Nuc Med, Echo etc): Report Reviewed by me (Echo)
Labs: Labs Reviewed by me
--- NOTE | 2024-12-07 12:25 | CON.CAR ---
Addendum entered and electronically signed by Saul Leo MD 12/07/24 14:49:
I saw and examined the patient.
The SURVEILLANCE ANALYST or PA's note was reviewed and I agree with the note.
Comment: General: Well developed, well nourished in NAD.
Neck: Supple, no JVD, HJR, carotids +2 B/L, no bruits bilaterally.
Heart: Non displaced PMI, RRR, no murmurs, No S3, S4, no rubs.
Lungs: Scattered rhonchi at the bases
Extremities: Mild lower extremity edema with chronic venous stasis changes
Neuro: Grossly nonfocal, awake, alert and oriented x3.
Avi has history of PAF on chronic Eliquis, status post Medtronic Linq in December 2023, COPD, hypertension, Parkinson's disease, dementia. He presents with ongoing shortness of breath for the past few months. He been treated with steroids and
antibiotics as well as higher dose of Lasix without response. Cardiology consulted for acute diastolic CHF.
Will treat as CHF with IV Lasix. To follow-up with cardiology with Dr. Mcnamara. Discussed with at bedside. Of note patient has had decreasing mental status and likely sundowning with dementia. Hopefully can discharge in the next 24 hours.
Discussed with primary service.
Original Note:
Consultation
Consultation Request
Date/Time Consultation Requested: 12/07/2024
Date/Time Consultation Performed: 12/07/2024
Requesting Provider: Dr. Major
Performing Provider: Isabel Musa PA-C for Dr. Leo
Reason for Consultation: CHF
Medical History
-
History of Present Illness:
HPI: Misbah is an 84-year-old male with past medical history of paroxysmal atrial fibrillation on chronic Eliquis, COPD, hypertension, hyperlipidemia, Parkinson's disease, venous insufficiency, and prior thyroidectomy. Presented to [facility] ER with
ongoing shortness of breath with exertion over the past few months. As outpatient, he reportedly has been treated with several courses of steroids and antibiotics with only temporary improvement. Also noted increased lower extremity edema as well
as a 9 pound weight gain within the past few weeks. No fevers or chills noted. Initially admitted with concern for COPD exacerbation. Treated with steroids and has not noted any significant change clinically. Procalcitonin within normal limits,
proBNP only 40.6, and troponin negative x 1. CT of chest done on day of admission was without acute cardiopulmonary abnormality. Lower extremity ultrasound without evidence of DVT. EKG from ER, SR with no acute ischemic changes noted. He has
Linq monitor in place and reports he has had no prolonged episodes of atrial fibrillation since implant, only a few hours here and there. He continues on Eliquis without interruption. He has been compliant with his Lasix as outpatient, but
does admit to dietary indiscretion and notes his diet is quite high in sodium. Echo on 12/06 showed evidence of possible volume overload and he was started on IV Lasix. Cardiology consult placed. He reports he feels well and has no shortness of
breath while sitting.
PMH:
Paroxysmal atrial fibrillation
Chronic Eliquis OAC
s/p Medtronic Linq implant 12/29/2023
COPD
HTN
HLD
Parkinson's disease
Venous insufficiency
h/o L thyroidectomy
Past Medical History
Past Medical History: Other (In HPI)
Past Surgical History: Cardiac (Linq implant 12/29/2023), Tonsilectomy and Other (eye surgery, L thyroidectomy 10/03/2020)
Social History
Tobacco: Former Smoker
Alcohol: None
Drug: None
Personal:
Living: With Family
Employment: Retired
Family History
Family History: Reviewed & Not Pertinent
Allergies / Home Medications
Allergy/AdvReac Type Severity Reaction Status Date / Time
No Known Allergies Allergy Verified 07/28/24 12:10
�Medication �Instructions �Recorded �Confirmed �Type
cholecalciferol (vitamin D3) 50 2,000 unit PO DAILY Supplement 12/11/14 12/05/24 History
mcg (2,000 unit) tablet
atorvastatin 10 mg tablet 10 mg PO DAILY High cholesterol 07/30/16 12/05/24 History
pramipexole 0.125 mg tablet 0.125 mg PO BID parkinson disease 02/25/21 12/05/24 History
apixaban 5 mg tablet (Eliquis) 5 mg PO BID 30 days #60 tabs 03/01/21 12/05/24 Rx
furosemide 20 mg tablet (Lasix) 20 mg PO DAILY Fluid 04/12/22 12/05/24 History
retention/Swelling
carbidopa 25 mg-levodopa 100 mg 2 tab PO QID parkinson disease 04/13/22 12/05/24 History
tablet
metoprolol succinate 25 mg 25 mg PO DAILY Blood pressure 04/13/22 12/05/24 History
tablet,extended release 24 hr
ipratropium 0.5 mg-albuterol 3 mg 3 ml inhalation R QIDPRN PRN sob 12/05/24 12/05/24 History
(2.5 mg base)/3 mL nebulization
soln
mirtazapine 7.5 mg tablet 7.5 mg PO HS 12/05/24 12/05/24 History
therapeutic multivitamin 1 tab PO DAILY 12/05/24 12/05/24 History
zinc sulfate 50 mg zinc (220 mg) 50 mg PO DAILY 12/05/24 12/05/24 History
tablet
Review of Systems
-
History Source: Patient and Family
All other systems: Negative unless noted
Physical Exam
Vital Signs
Temp Pulse Resp BP Pulse Ox
98.7 F 64 18 135/65 94
12/07/24 11:00 12/07/24 11:13 12/07/24 11:13 12/07/24 11:00 12/07/24 11:13
Lab Results
12/06/24 07:36
12/07/24 09:16
Troponin I < 0.012 ng/ml 12/05/24 12:12
Eqc-H-Ykjfcittjvl Pept 40.6 pg/ml 12/05/24 12:12
Physical Exam
General: Well Developed, Well Nourished and No Apparent Distress
HEENT: Normocephalic, Anicteric and Moist Mucous Membranes
Respiratory: Non Labored Respirations
Cardiac: S1/S2, Regular Rhythm and Murmur
Musculoskeletal: No Clubbing, No Cyanosis and Edema
Skin: Warm and Dry
Neuro: Awake and Alert
Psych: Calm
Impression / Plan
-
PCP: Dr. Ott
Cardiology: Dr. Rashid ([facility])
Impression:
Presented with weight gain, SOB
Suspected acute HFpEF
Paroxysmal atrial fibrillation
Chronic Eliquis OAC
s/p Medtronic Linq implant 12/29/2023
COPD
HTN
HLD
Parkinson's disease
Venous insufficiency
h/o L thyroidectomy
Nuclear stress test 10/06/2023: Small, mild defect in the mid inferolateral wall that is fixed. Perfusion defect improved with attenuation correction. EF 60%.
Echo 07/26/2024: EF 60 to 65%, mild concentric LVH, E/A reversal of the mitral inflow pattern consistent with impaired relaxation of the LV, moderate with peak/mean gradients 30/18 mmHg minimal MR, minimal TR, estimated PASP 29 mmHg
Echo 12/06/2024: EF 66%, mild concentric LVH, mild septal straightening as is seen with RV pressure or volume overload, trace AR, peak/mean gradient 38/21 mmHg, mild MAC with trace MR, trace TR, estimated PAP 28 mmHg
Plan:
-Presented with shortness of breath, weight gain, and increased lower extremity edema. Does admit to dietary indiscretion and has diet that is high in sodium.
-He is compliant with his Lasix 20 mg daily as outpatient. proBNP 40.6 on arrival, however reports good response to dose of IV Lasix given today.
-Weight is up 12 pounds from last office visit. Dry weight felt to be closer to 237 pounds. Continue daily weights, I&O's
-Will continue diuresis with IV Lasix 20 mg daily. Creatinine stable at 0.7.
-CHF education
-Echo 12/06 with preserved EF and moderate . Stable compared to prior.
-Remains in SR by review of telemetry. Linq monitor in place
-Heart rates are stable. Continue Toprol.
-Continue Eliquis 5 mg twice daily for anticoagulation.
-No chest pain. Troponin negative x 1.
HPI: Misbah is an 84-year-old male with past medical history of paroxysmal atrial fibrillation on chronic Eliquis, COPD, hypertension, hyperlipidemia, Parkinson's disease, venous insufficiency, and prior thyroidectomy. Presented to [facility] ER with
ongoing shortness of breath with exertion over the past few months. As outpatient, he reportedly has been treated with several courses of steroids and antibiotics with only temporary improvement. Also noted increased lower extremity edema as well
as a 9 pound weight gain within the past few weeks. No fevers or chills noted. Initially admitted with concern for COPD exacerbation. Treated with steroids and has not noted any significant change clinically. Procalcitonin within normal limits,
proBNP only 40.6, and troponin negative x 1. CT of chest done on day of admission was without acute cardiopulmonary abnormality. Lower extremity ultrasound without evidence of DVT. EKG from ER, SR with no acute ischemic changes noted. He has
Linq monitor in place and reports he has had no prolonged episodes of atrial fibrillation since implant, only a few hours here and there. He continues on Eliquis without interruption. He has been compliant with his Lasix as outpatient, but
does admit to dietary indiscretion and notes his diet is quite high in sodium. Echo on 12/06 showed evidence of possible volume overload and he was started on IV Lasix. Cardiology consult placed. He reports he feels well and has no shortness of
breath while sitting.
Data Reviewed
-
EKG: Tracing Personally Visualized and interpreted
CT Scan: Report Reviewed by me
Medical Tests (Nuc Med, Echo etc): Report Reviewed by me
Labs: Labs Reviewed by me
Old Records: Requested and Reviewed
[2024-12-07] MEDS: LASIX 20 MG IV (12:43)
[2024-12-07 15:00] VITALS: BP 109/52
--- NOTE | 2024-12-07 15:20 | CM ---
Patient still requiring acute care. Per therapy notes, they will meet with patient when able. Will follow for needs.
Plan: Case management will continue to follow and assist with discharge planning. Will watch for SNF.
--- NOTE | 2024-12-07 16:25 | PTOTSP ---
Speech Therapy Evaluation:
Pt with acute on chronic risk factors of dysphagia including hx of dementia, COPD, Parkinson's, chronic bronchitis, and restrictive lung disease, acutely compounded by shortness of breath and increased O2 requirements in the setting of COPD
exacerbation. 1x prolonged coughing episode with cracker, however suspect unrelated to aspiration given episode began prior to oral manipulation of cracker in mouth and no subsequent s/sx of aspiration with cracker. Currently, CXR without pneumonia,
WBC WNL, and pt afebrile. Family reported no dysphagia hx.
Recommend:
1. Regular solids and thin liquids
2. Medications as tolerated
3. Strict aspiration precautions
4. Close supervision during intake
5. COTTON PICKER to follow to monitor tolerance of diet and determine if pt would benefit from instrumental given acute on chronic risk factors of dysphagia
[2024-12-07 19:42] VITALS: BP 128/87
[2024-12-07] MEDS: REMERON 7.5 MG PO (20:56)
[2024-12-07 23:14] VITALS: BP 109/63
--- NOTE | 2024-12-07 23:40 | PTCARENOTE ---
Patient becoming increasingly agitated throughout the night. Oriented to self only, attempting to get OOB despite redirection. Patient also with head tremors. SALAD MAKER made aware, orders for 1x dose of IV valium. Plan of care ongoing.
[2024-12-08] VITALS (8 sets, daily range): BP systolic 102–165; BP diastolic 53–88; PULSE 84; O2SAT 94; BMI 32.3
[2024-12-08] MEDS: DECADRON 4 MG IV (05:31)
[2024-12-08] MEDS: DUONEB 3 ML INH ×4 (07:21→19:24)
[2024-12-08] MEDS: PULMICORT 0.5 MG INH ×2 (07:22→19:24)
[2024-12-08 08:50] LABS: Blood Urea Nitrogen 30 mg/dl (9-20); Calcium 9.8 mg/dl (8.4-10.2); Carbon Dioxide 25 mmol/L (22-30); Chloride 103 mmol/L (98-107); Estimated Creatinine Clearance 106 ml/min; Glucose 103 mg/dl (70-99); Potassium 4.3 mmol/L (3.5-5.1); Sodium 138 mmol/L (135-145); eGFR > 60.00
[2024-12-08] MEDS: LASIX 20 MG IV (09:23)
[2024-12-08] MEDS: LIPITOR 10 MG PO (09:24)
[2024-12-08] MEDS: TOPROL XL 25 MG PO (09:24)
[2024-12-08] MEDS: ELIQUIS 5 MG PO ×2 (09:24→20:58)
[2024-12-08] MEDS: SINEMET 25-100 2 TABLET PO ×4 (09:24→20:59)
[2024-12-08] MEDS: MIRAPEX 0.125 MG PO ×2 (09:24→20:58)
--- NOTE | 2024-12-08 12:23 | W.PN.CARDCBS ---
Today's Communication / Plan
-
He continues with cough despite diuresis
Check chest x-ray
May need coverage for bronchitis/pneumonia
Will continue IV Lasix
Impression / Plan
-
PCP: Dr. Ott
Cardiology: Dr. Rashid ([facility])
Impression:
Presented with weight gain, SOB
Suspected acute HFpEF
Paroxysmal atrial fibrillation
Chronic Eliquis OAC
s/p Medtronic Linq implant 12/29/2023
COPD
HTN
HLD
Parkinson's disease
Venous insufficiency
h/o L thyroidectomy
Nuclear stress test 10/06/2023: Small, mild defect in the mid inferolateral wall that is fixed. Perfusion defect improved with attenuation correction. EF 60%.
Echo 07/26/2024: EF 60 to 65%, mild concentric LVH, E/A reversal of the mitral inflow pattern consistent with impaired relaxation of the LV, moderate with peak/mean gradients 30/18 mmHg minimal MR, minimal TR, estimated PASP 29 mmHg
Echo 12/06/2024: EF 66%, mild concentric LVH, mild septal straightening as is seen with RV pressure or volume overload, trace AR, peak/mean gradient 38/21 mmHg, mild MAC with trace MR, trace TR, estimated PAP 28 mmHg
Plan:
He continues with cough despite diuresis. Weight is decreased only 2 pounds since admission ( 245 pounds on 12/08) but may be up 8 pounds since last office visit. Dry weight felt to be closer to 237 pounds.
Will continue diuresis with IV Lasix 20 mg daily. Creatinine stable at 0.7.
Will check chest x-ray�? Patient might have pneumonia/bronchitis component as well
Discussed with daughter in detail at bedside as well as primary service
HPI: Misbah is an 84-year-old male with past medical history of paroxysmal atrial fibrillation on chronic Eliquis, COPD, hypertension, hyperlipidemia, Parkinson's disease, venous insufficiency, and prior thyroidectomy. Presented to [facility] ER with
ongoing shortness of breath with exertion over the past few months. As outpatient, he reportedly has been treated with several courses of steroids and antibiotics with only temporary improvement. Also noted increased lower extremity edema as well
as a 9 pound weight gain within the past few weeks. No fevers or chills noted. Initially admitted with concern for COPD exacerbation. Treated with steroids and has not noted any significant change clinically. Procalcitonin within normal limits,
proBNP only 40.6, and troponin negative x 1. CT of chest done on day of admission was without acute cardiopulmonary abnormality. Lower extremity ultrasound without evidence of DVT. EKG from ER, SR with no acute ischemic changes noted. He has
Linq monitor in place and reports he has had no prolonged episodes of atrial fibrillation since implant, only a few hours here and there. He continues on Eliquis without interruption. He has been compliant with his Lasix as outpatient, but
does admit to dietary indiscretion and notes his diet is quite high in sodium. Echo on 12/06 showed evidence of possible volume overload and he was started on IV Lasix. Cardiology consult placed. He reports he feels well and has no shortness of
breath while sitting.
Progress Note - Filler Room Attendant
Subjective
Date of Service: December 08, 2024
No complaints
Objective
Labs:
12/06/24 07:36
12/08/24 06:36
Labs
Hgb 16.6 g/dL (13.0-18.0) 12/06/24 07:36
Hct 49.2 % (39.0-52.0) 12/06/24 07:36
Plt Count 282 10^3/uL (130-400) 12/06/24 07:36
Sodium 138 mmol/L (135-145) 12/08/24 06:36
Potassium 4.3 mmol/L (3.5-5.1) 12/08/24 06:36
BUN 30 mg/dl (9-20) H 12/08/24 06:36
Creatinine 0.7 mg/dL (0.7-1.3) 12/08/24 06:36
Glucose 103 mg/dl (70-99) H 12/08/24 06:36
Troponins
12/05/24
12:12
Troponin I < 0.012
Vital Signs and I&O:
Vital Signs
Temp Pulse Resp BP Pulse Ox
97.5 F 66 16 102/53 96
12/08/24 11:30 12/08/24 11:30 12/08/24 11:30 12/08/24 11:30 12/08/24 11:30
Vital Signs
Temp Pulse Resp BP Pulse Ox
97.5 F 66 16 102/53 96
12/08/24 11:30 12/08/24 11:30 12/08/24 11:30 12/08/24 11:30 12/08/24 11:30
Intake & Output
12/06/24 12/07/24 12/08/24 12/09/24
06:59 06:59 06:59 06:59
Intake Total 240 / 240
Output Total 1250 / 1250 625 / 625 525 / 525
Balance -1250 / -1250 -385 / -385 -525 / -525
Physical Exam
Physical Exam
General: Well developed, well nourished in NAD.
Neck: Supple, no JVD, HJR, carotids +2 B/L, no bruits bilaterally.
Heart: Non displaced PMI, RRR, no murmurs, No S3, S4, no rubs.
Lungs: Scattered rhonchi at the bases
Extremities: No clubbing, cyanosis or edema bilaterally.
Neuro: Grossly nonfocal, awake, alert and oriented x3.
--- NOTE | 2024-12-08 14:17 | W.PN.HOSP.TC ---
Today's Communication/Plan
-
CW IV lasix
DC planning
Assessment / Plan
Assessment / Plan
Progressive shortness of breath especially with exertion
Recent concern for COPD flare treated with 3 courses of steroids and antibiotics
Patient denies history of COPD but says he has chronic bronchitis.
Recurrent flares needing 3 courses of steroids and antibiotics. Recurrence of symptoms after steroid courses are done.
Chest CT shows no evidence of focal abnormality in thorax other than bibasilar subsegmental atelectasis.
Unclear if this is pulmonary or cardiac.
Patient is seen increased weight gain with lower extremity edema. Echocardiogram shows septal flattening seen in RV pressure/volume overload. EF was 66%. There is also mildly dilated right ventricle with preserved contractility.
Since admission I did not hear any wheezing. Appreciate pulmonary input who also does not think he has active reactive airways/COPD flare. Recommending against antibiotics. Procalcitonin normal.
Patient initiated on budesonide inhaler.
-Off of steroids
- Started on low dose lasix
-Continue DuoNeb PRN
- Monitor pulse ox
- Appt pulm
- SPT/PT eval noted -ok for regualr diet
Acute hypoxic respiratory insufficiency-wean oxygen as able. On room air.
Fluid Retention due to recent/frequent steroids
- Raises concern about RV pressure/volume overload. BNP is normal but could be the case in obese people.
- Does have lower extremity edema. Clinical concern based on the echo could be diastolic dysfunction and diastolic heart failure.
- Continue diuretics. Appt cardiology input.
Paroxysmal Atrial Fibrillation
In A-fib
-Continue Eliquis
-Continue metoprolol with hold parameters
Abnormal enlargement of the right lobe of thyroid-recommend outpatient ultrasound.
Essential Hypertension
-Continue metoprolol with hold parameters
Hyperlipidemia
-Continue atorvastatin
Parkinson's Disease
-Continue Sinemet and Pramipexole
DVT proph: Eliquis
Code Status: Full Code
DW at bedside
Anticipated Discharge: 24 - 48 hours
Subjective/Interval History
-
Date of Service: December 08, 2024
Denies SOB
Denies CP
Cough present
No N/V or abdo pain
Objective Data
-
Labs:
Laboratory Results
12/08/24
06:36
Sodium 138
Potassium 4.3
Chloride 103
Carbon Dioxide 25
BUN 30 H
Creatinine 0.7
Glucose 103 H
Calcium 9.8
Vital Signs:
Vital Signs
Temp Pulse Resp BP Pulse Ox
97.5 F 70 14 102/53 93
12/08/24 11:30 12/08/24 14:14 12/08/24 14:14 12/08/24 11:30 12/08/24 14:14
I&O
12/07/24 12/08/24 12/09/24
06:59 06:59 06:59
Intake Total 240 / 240
Output Total 625 / 625 525 / 525
Balance -385 / -385 -525 / -525
Physical Exam
-
General: Comfortable
Respiratory: Rhonchi and Non Labored Respirations; Negative Accessory Resp Muscle Use
Cardiac: Regular Rhythm and S1/S2; Negative Tachycardic
GI: Soft
Musculoskeletal: Edema, Right Lower Extrem and Edema, Left Lower Extrem (1+ BL)
Neuro: Awake, Alert and Oriented (Self and person)
Psych: Calm and Confused
Data Reviewed
-
Labs: Labs Reviewed by me
[2024-12-08] MEDS: REMERON 7.5 MG PO (20:55)
[2024-12-08] MEDS: VALIUM INJECTION 2 MG IV (23:34)
--- NOTE | 2024-12-09 03:09 | W.PN.UPDATE ---
Update Note
Progress Note Update
patient with increasing agitation, with tremors (Parkinson's disease), RN reports patient is having head tremors due to agitation. Unable to calm patient verbally. Will give a dose of Diazepam 2mg IVx1.stable VS, Denies any pain, voiding without
difficulty per RN.
[2024-12-09 03:40] VITALS: BP 126/58
[2024-12-09 06:00] VITALS: BMI 32.1
[2024-12-09 06:57] VITALS: BP 149/69
[2024-12-09] MEDS: DUONEB 3 ML INH ×2 (07:48→11:20)
[2024-12-09] MEDS: PULMICORT 0.5 MG INH (07:49)
[2024-12-09] MEDS: TOPROL XL 25 MG PO (07:53)
[2024-12-09] MEDS: ELIQUIS 5 MG PO (07:54)
[2024-12-09] MEDS: LIPITOR 10 MG PO (07:54)
[2024-12-09] MEDS: MIRAPEX 0.125 MG PO (07:54)
[2024-12-09] MEDS: SINEMET 25-100 2 TABLET PO ×2 (07:54→12:43)
[2024-12-09] MEDS: LASIX 20 MG IV (08:20)
--- NOTE | 2024-12-09 10:03 | W.PN.CARDCBS ---
Today's Communication / Plan
-
Stable cardiac status for discharge
Change Lasix to 40 mg p.o. daily
Follow-up with cardiology in [place]
Impression / Plan
-
PCP: Dr. Ott
Cardiology: Dr. Rashid ([facility])
Impression:
Presented with weight gain, SOB
Acute diastolic CHF
Paroxysmal atrial fibrillation
Chronic Eliquis OAC
s/p Medtronic Linq implant 12/29/2023
COPD
HTN
HLD
Parkinson's disease
Venous insufficiency
h/o L thyroidectomy
Nuclear stress test 10/06/2023: Small, mild defect in the mid inferolateral wall that is fixed. Perfusion defect improved with attenuation correction. EF 60%.
Echo 07/26/2024: EF 60 to 65%, mild concentric LVH, E/A reversal of the mitral inflow pattern consistent with impaired relaxation of the LV, moderate with peak/mean gradients 30/18 mmHg minimal MR, minimal TR, estimated PASP 29 mmHg
Echo 12/06/2024: EF 66%, mild concentric LVH, mild septal straightening as is seen with RV pressure or volume overload, trace AR, peak/mean gradient 38/21 mmHg, mild MAC with trace MR, trace TR, estimated PAP 28 mmHg
Plan:
He appears improved but remains very confused
Would like to limit hospital stay to prevent worsening mental status
Weight is down 2 more pounds in the past 48 hours and chest x-ray was okay on 12/08
Will change IV Lasix to Lasix 40 mg daily
He will follow-up with cardiology in [place]
Discussed in detail with daughter at bedside as well as primary service
HPI: Misbah is an 84-year-old male with past medical history of paroxysmal atrial fibrillation on chronic Eliquis, COPD, hypertension, hyperlipidemia, Parkinson's disease, venous insufficiency, and prior thyroidectomy. Presented to [facility] ER with
ongoing shortness of breath with exertion over the past few months. As outpatient, he reportedly has been treated with several courses of steroids and antibiotics with only temporary improvement. Also noted increased lower extremity edema as well
as a 9 pound weight gain within the past few weeks. No fevers or chills noted. Initially admitted with concern for COPD exacerbation. Treated with steroids and has not noted any significant change clinically. Procalcitonin within normal limits,
proBNP only 40.6, and troponin negative x 1. CT of chest done on day of admission was without acute cardiopulmonary abnormality. Lower extremity ultrasound without evidence of DVT. EKG from ER, SR with no acute ischemic changes noted. He has
Linq monitor in place and reports he has had no prolonged episodes of atrial fibrillation since implant, only a few hours here and there. He continues on Eliquis without interruption. He has been compliant with his Lasix as outpatient, but
does admit to dietary indiscretion and notes his diet is quite high in sodium. Echo on 12/06 showed evidence of possible volume overload and he was started on IV Lasix. Cardiology consult placed. He reports he feels well and has no shortness of
breath while sitting.
Progress Note - Technology Support Analyst
Subjective
Date of Service: December 09, 2024
No complaints but appears confused
Objective
Labs:
12/06/24 07:36
12/08/24 06:36
Labs
Hgb 16.6 g/dL (13.0-18.0) 12/06/24 07:36
Hct 49.2 % (39.0-52.0) 12/06/24 07:36
Plt Count 282 10^3/uL (130-400) 12/06/24 07:36
Sodium 138 mmol/L (135-145) 12/08/24 06:36
Potassium 4.3 mmol/L (3.5-5.1) 12/08/24 06:36
BUN 30 mg/dl (9-20) H 12/08/24 06:36
Creatinine 0.7 mg/dL (0.7-1.3) 12/08/24 06:36
Glucose 103 mg/dl (70-99) H 12/08/24 06:36
Vital Signs and I&O:
Vital Signs
Temp Pulse Resp BP Pulse Ox
98.5 F 63 18 149/69 95
12/09/24 06:57 12/09/24 07:51 12/09/24 07:51 12/09/24 06:57 12/09/24 07:51
Vital Signs
Temp Pulse Resp BP Pulse Ox
98.5 F 63 18 149/69 95
12/09/24 06:57 12/09/24 07:51 12/09/24 07:51 12/09/24 06:57 12/09/24 07:51
Intake & Output
12/07/24 12/08/24 12/09/24 12/10/24
06:59 06:59 06:59 06:59
Intake Total 240 / 240 960 / 960
Output Total 625 / 625 675 / 675 425 / 425
Balance -385 / -385 285 / 285 -425 / -425
Physical Exam
Physical Exam
General: Awake but confused
--- NOTE | 2024-12-09 10:50 | W.DCSUMMARY ---
Discharge Summary
Discharge Data
Date of Admission: 12/05/24
Date of Discharge: 12/09/24
-
Pending Results: No
Hospital Course
Primary diagnosis:
Acute diastolic heart failure
Secondary diagnosis:
Paroxysmal atrial fibrillation on chronic Eliquis
Chronic obstructive pulmonary disease
Essential hypertension
Hyperlipidemia
Parkinson's disease
History of left thyroidectomy
Hospital course:
Patient presented with shortness of breath and cough. Apparently this has been progressive over the last few weeks and he had 3 courses of steroids and antibiotics with some improvement but symptoms quickly reoccurred. His cough was present but
not much productive. There was initial concern before hospitalization of this being a COPD flareup. He was not wheezy here. Chest imaging which included x-ray and a CT chest did not support any evidence of pneumonia. No PE. Also seen by
pulmonary who did not see evidence of COPD flare. He does have chronic bronchitis and has not followed with pulmonology in the last 3 years. They were hesitant to use nebulizer treatments because of A-fib. To help with chronic bronchitis
pulmonary started on budesonide nebulizer treatment and they are happy to try other treatments.
What was concerning was a heart failure situation. He had developed lower extremity edema which is new for him. His BNP was normal but again he is on the heavier side with a BMI of 32. Echo showed a preserved systolic function but there was a
septal straightening which could be seen with RV pressure/volume overload. EF of 66%. Mild aortic stenosis and trace aortic regurgitation was noted. Mildly dilated RV with preserved contractility was noted. Normal pulmonary artery systolic
pressure. The echo findings were concerning for fluid overload suggestive of acute diastolic CHF in the setting of chronic COPD and recent steroid use. He was put on diuretics with improvement in his shortness of breath and resolution of his
hypoxia.
Cardiology increase the home dose of Lasix from 20 mg to 40 mg and advised to follow-up BMP in a week and cardiology follow-up in a week.
Today he was comfortable and voices no specific complaints. Denies shortness of breath. Did not complain much of cough. Remains on room air. Afebrile. Pulse 63. Blood pressure 149/69. Chest was clear without wheeze or crackles. Improved
lower extremity edema noted. Skin lines are visible now on his lower extremities compared to admission.
Deemed medically stable for discharge with home care.
Total time of discharge 35 minutes
Consultants on board:
Pulmonary-Jane Cobos
Cardiology-Saul Chamberlain
Discharge Plan
-
Patient Disposition: Home with Home Care
Discharge Diagnosis/Procedures: Systolic heart failure, paroxysmal atrial fibrillation, COPD without flare
Diet: Regular and Restrict fluids to 64 oz
Activity: As tolerated
Driving Restrictions: As prior to admission
Bathing Restrictions: None
Blood Work: BMP blood work in one week -arrange through your PCP
Other Services: VN and PT
Specialty Instructions: Weigh Daily- Call MD for wt gain/loss 3 lbs overnight/5 lbs in 1 week
Activity Restrictions/Additional Instructions:
Follow with your primary cnc operator in 1 week -call to make an appointment
Referrals:
Demond Ott DO [Family Provider, Family Practice] - in less than 1 week
Prescriptions:
New
furosemide 40 mg Tablet
40 mg PO DAILY Qty: 30 0RF
budesonide 0.5 mg/2 mL Suspension For Nebulization
0.5 mg inhalation R BID Qty: 60 1RF
dextromethorphan-guaifenesin 10-100 mg/5 mL Syrup
10 ml PO Q4HPRN PRN (Reason: cough) Qty: 237 0RF
Continued
cholecalciferol (vitamin D3) 2,000 UNIT tablet
2,000 unit PO DAILY
atorvastatin 10 MG tablet
10 mg PO DAILY
pramipexole 0.125 MG tablet
0.125 mg PO BID
Eliquis 5 MG tablet
5 mg PO BID 30 Days Qty: 60 3RF
metoprolol succinate 25 mg tablet extended release 24 hr
25 mg PO DAILY
carbidopa-levodopa 25-100 mg tablet
2 tab PO QID
ipratropium-albuterol 0.5 mg-3 mg(2.5 mg base)/3 mL Solution For Nebulization
3 ml INHALATION R QIDPRN PRN (Reason: sob)
zinc sulfate 50 mg zinc (220 mg) Tablet
50 mg PO DAILY
mirtazapine 7.5 mg Tablet
7.5 mg PO HS
therapeutic multivitamin Tablet
1 tab PO DAILY
Discontinued
furosemide [Lasix] 20 mg Tablet
20 mg PO DAILY
Discharge Orders:
Discharge Patient (As Directed); Ordered 12/09/24
Ordered By: Lobo Major
Discharge Date and Time
Print Language: ALBANIAN
[2024-12-09 11:31] VITALS: BP 102/48
--- NOTE | 2024-12-09 12:38 | CM ---
Patient for d/c today. Therapy rec SNF vs home PT, depending on if family can provide 24/7 support initially
Met w/ patient, spouse and daughter bedside. Per family, there is a plan in place for patient to receive 24/7 support. Patient also has private pay PT a few times a week for patient's Parkinson's. Family agreeable to home PT, [facility] referral placed in
[facility]
IMM verbally reviewed, copy provided, copy on chart
Plan: Home w/ [facility]
== END 2024-12-09 13:29 | disposition home health service (06) | DRG 291 ==
LOC: 4 EAST ACU 18:05
PROVIDERS: Nurse Practitioner Family; Physician Assistant Medical; Student in an Organized Health Care Education/Training Program; ADMITTING PHYSICIAN Hospitalist; ATTENDING PHYSICIAN Internal Medicine; CONSULT PHYSICIAN Internal Medicine; CONSULT PHYSICIAN Internal Medicine Cardiovascular Disease; EMERGENCY PHYSICIAN Emergency Medicine; FAMILY PHYSICIAN Family Medicine
DX: I11.0 Hypertensive heart disease with heart failure (principal); I50.31 Acute diastolic (congestive) heart failure; J44.0 Chronic obstructive pulmonary disease with (acute) lower respiratory infection; J44.1 Chronic obstructive pulmonary disease with (acute) exacerbation; Q21.12 Patent foramen ovale; I48.0 Paroxysmal atrial fibrillation; F03.90 Unspecified dementia, unspecified severity, without behavioral disturbance, psychotic disturbance, mood disturbance, and anxiety; G20.A1 Parkinson's disease without dyskinesia, without mention of fluctuations; E66.9 Obesity, unspecified; J98.4 Other disorders of lung; R73.03 Prediabetes; I42.8 Other cardiomyopathies; F32.A Depression, unspecified; M47.816 Spondylosis without myelopathy or radiculopathy, lumbar region; N41.1 Chronic prostatitis; N40.0 Benign prostatic hyperplasia without lower urinary tract symptoms; K57.30 Diverticulosis of large intestine without perforation or abscess without bleeding; J30.2 Other seasonal allergic rhinitis; I87.2 Venous insufficiency (chronic) (peripheral); E78.00 Pure hypercholesterolemia, unspecified; Z68.32 Body mass index [BMI] 32.0-32.9, adult; Z79.899 Other long term (current) drug therapy; Z79.01 Long term (current) use of anticoagulants; Z85.820 Personal history of malignant melanoma of skin; Z87.442 Personal history of urinary calculi; Z85.828 Personal history of other malignant neoplasm of skin; Z87.891 Personal history of nicotine dependence
CPT/HCPCS: 71046; 71250; 80048; 80053; 81003; 81015; 82805; 83735; 83880; 84145; 84484; 85025; 85027; 87086; 92610; 93005; 93306; 93970; 94640; 94669; 97163; 97167; 99285; Q9950

== ENCOUNTER → 2024-12-18 16:17 | Outpatient (REF) | payer MEDICARE, OTHER, SELFPAY ==
[2024-12-18 18:03] LABS: Blood Urea Nitrogen 13 mg/dl (9-20); Calcium 9.6 mg/dl (8.4-10.2); Carbon Dioxide 27 mmol/L (22-30); Chloride 103 mmol/L (98-107); Glucose 119 mg/dl (70-99); Potassium 4.2 mmol/L (3.5-5.1); Sodium 136 mmol/L (135-145); eGFR > 60.00
== END ==
LOC: CLAB 16:17
PROVIDERS: ATTENDING PHYSICIAN Family Medicine; OTHER PHYSICIAN Internal Medicine Cardiovascular Disease
DX: I50.31 Acute diastolic (congestive) heart failure (principal)
CPT/HCPCS: 36415; 80048

== ENCOUNTER → 2025-04-10 14:41 | Outpatient (REF) | payer MEDICARE, OTHER, SELFPAY | LOC: RAD 14:41 | PROVIDERS: ATTENDING PHYSICIAN Nurse Practitioner Family | DX: R41.0 Disorientation, unspecified (principal) | CPT/HCPCS: 71046 ==